=== PATIENT | female | born 1945 | race Caucasian/White ===

== ENCOUNTER 2020-12-11 13:38 | Emergency (ER) | payer MEDICARE, MEDICAID, SELFPAY ==
[2020-12-11 13:39] VITALS: BP 136/71; PULSE 84; RESP 18; TEMP 36.7; O2SAT 96; BMI 18.8
--- NOTE | 2020-12-11 13:44 | CT_ITS ---
PROCEDURE: CT HEAD/BRAIN WO CON CLINICAL INDICATION: fall Head injury with headache/pain, contusion, abrasion or hematoma COMPARISON: No exams were available for comparison TECHNIQUE: Axial images obtained. All CT scans at the facility use one or more dose reduction, viz: automated exposure control, ma/kV adjustment per patient size (including targeted exams where dose is matched to indication, i.e. head), or iterative reconstruction technique. FINDINGS: No midline shift, mass effect, intracranial hemorrhage, hydrocephalus, or extra-axial fluid collection is evident. There is generalized atrophy with hypoattenuation of the periventricular white matter consistent with microangiopathic changes. There has been a prior left occipital craniotomy. Soft tissue swelling is present in the frontal region of the scalp on the right and in the periorbital area IMPRESSION: No acute intracranial finding Right frontal scalp hematoma Dictated by: Joe Tesfaye MD 12/11/2020 14:36 Joe Tesfaye MD in [facility] 12/11/2020 14:36
--- NOTE | 2020-12-11 13:44 | CT_ITS ---
PROCEDURE: CT CERVICAL SPINE WO CON CLINICAL INDICATION: fall Neck injury with pain, contusion/abrasion or hematoma, cervical sprain/strain COMPARISON: No exams were available for comparison TECHNIQUE: Axial images obtained with sagittal and coronal reformats. All CT scans at the facility use one or more dose reduction, viz: automated exposure control, ma/kV adjustment per patient size (including targeted exams where dose is matched to indication, i.e. head), or iterative reconstruction technique. Axial spiral CT scanning performed of the cervical spine beginning at the base of the skull and continuing to the upper T-spine. 3-D multiplanar reconstruction with 3-D manipulation of volumetric data set in image rendering was completed by the radiologist and/or technologist with the supervision of the radiologist on independent workstation. FINDINGS: Normal alignment. No acute fracture or dislocation. C2-C3: Degenerative disc disease. Canal stenosis with left lateral recess and foraminal narrowing. C3-C4: Degenerative disc disease with severe canal stenosis of 7 mm with bilateral lateral recess and foraminal narrowing. C4-C5: Degenerative disc disease. C5-C6: Degenerative disc disease with left-sided lateral recess and foraminal narrowing. C6-C7: Degenerate disc disease with left-sided uncovertebral hypertrophy and left-sided lateral recess and foraminal narrowing. There is scarring in the lung apices. IMPRESSION: No acute fracture. Cervical spondylosis as detailed above with canal stenosis Dictated by: Joe Tesfaye MD 12/11/2020 14:40 Joe Tesfaye MD in [facility] 12/11/2020 14:40
[2020-12-11 13:48] VITALS: BP 136/71; PULSE 85; O2SAT 98
--- NOTE | 2020-12-11 13:49 | CT_ITS ---
PROCEDURE: CT FACIAL BONES WO CON CLINICAL HISTORY: fall Right-sided forehead laceration with pain and swelling COMPARISON: No exams were available for comparison TECHNIQUE: Axial images obtained with sagittal and coronal reformats. All CT scans at the facility use one or more dose reduction, viz: automated exposure control, ma/kV adjustment per patient size (including targeted exams where dose is matched to indication, i.e. head), or iterative reconstruction technique. FINDINGS: There is scalp hematoma in the right frontal region with right-sided periorbital hematoma. No obvious fracture. No sinus air-fluid level. There has been a prior craniotomy in the left occipital region. There are severe osteoarthritic changes of the right TMJ with subchondral cystic changes of the mandibular condyle and flattening of the mandibular condyle and condylar fossa. Severe osteoarthritic changes are present involving the left TMJ as well. 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 No acute fracture. 2. Right frontal and periorbital hematoma. 3. Severe bilateral TMJ arthropathy Dictated by: Joe Tesfaye MD 12/11/2020 14:42 Joe Tesfaye MD in [facility] 12/11/2020 14:42
--- NOTE | 2020-12-11 13:49 | [facility].EDGENADL ---
ED Disposition Clinical Impression: Fall Qualifiers: Encounter type: initial encounter Qualified Code(s): W19.XXXA - Unspecified fall, initial encounter Closed head injury Qualifiers: Encounter type: initial encounter Qualified Code(s): S09.90XA - Unspecified injury of head, initial encounter Forehead laceration Qualifiers: Encounter type: initial encounter Qualified Code(s): S01.81XA - Laceration without foreign body of other part of head, initial encounter Disposition: Home, Self-Care Condition on Discharge: Fair Instructions: DI for Laceration Repair -- Simple, How to Prevent Falls Additional Instructions: You have been evaluated for fall, forehead laceration. Some sutures are absorbable. Others will need to be removed in 7 to 10 days. Please follow-up with your primary care doctor in 1 to 2 days for concussion recheck. Return to the emergency department for any new or worsening symptoms, vomiting, other concerns. Referrals: Terrance Barrera [Primary Care Provider] - Time of Disposition: 16:50 - Critical Care Critical Care Time: No Attestation: On , the high probability of a clinically significant, sudden or life threatening deterioration of the following system(s) required my full and direct attention, intervention and personal management. The time I documented below is in addition to time spent performing reported procedures but includes the following listed in this critical care notation. Medical Decision Making - Medical Records Medical records reviewed: Yes: I reviewed the patient's medical records. - Andrea Inquiry Pt receiving controlled substance: No Vital Signs: 12/11/20 13:39 12/11/20 13:48 12/11/20 15:01 Temperature 98.1 F Temperature Source Oral Pulse Rate [Left Radial] 84 85 85 Respiratory Rate 18 Blood Pressure [Right Arm] 136/71 136/71 171/89 H Blood Pressure Mean [Right Arm] 92 92 116 Blood Pressure Source [Right Arm] Automatic Cuff Automatic Cuff Automatic Cuff Blood Pressure Position [Right Arm] Sitting Sitting Sitting 02 Sat by Pulse Oximetry 96 98 99 Oxygen Delivery Method Room Air Room Air Room Air - Lab Data Lab Results 12/11/20 14:40: WBC 7.9, RBC 4.02 L, Hgb 12.3, Hct 37.3, MCV 93.0, MCH 30.5, MCHC 32.8, RDW 13.8, Plt Count 213, MPV 7.9, Neut % (Auto) 56.8, Lymph % (Auto) 37.3, [place] % (Auto) 5.3, Eos % (Auto) 0.3, Baso % (Auto) 0.3, Neut # (Auto) 4.5, Lymph # (Auto) 2.9, [place] # (Auto) 0.4, Eos # (Auto) 0.0, Baso # (Auto) 0.0 Result diagrams: 12/11/20 14:40 Orders (Tests/Meds): ED MEDICATIONS Discontinued Medications Generic Name Dose Route Start Last Admin Trade Name Freoscar PRN Reason Stop Dose Admin Lidocaine HCl 10 ml 12/11/20 15:19 12/11/20 15:34 Lidocaine 1% 10ml Mdv IJ 12/11/20 15:20 10 ml ONCE ONE Administration - CT Data CT Scan: Head, C-Spine Time Received: 15:[address] Reviewed: Yes: I have reviewed the patient's CT results, I have viewed the radiologist's interpretation Findings Narrative: IMPRESSION 1. No acute fracture. 2. Right frontal and periorbital hematoma. 3. Severe bilateral TMJ arthropathy IMPRESSION: No acute intracranial finding Right frontal scalp hematoma Medical Decision Narrative: In summary this is a 75-year-old female presenting to the emergency department with head injury after a fall. She has a large laceration on the right forehead. Concern for serious intracranial injury, C-spine fracture, facial bone fracture. Will obtain CBC, CMP, chest x-ray, EKG, CT scan of the head, facial bones, C-spine. Noncontrast head CT shows hematoma but no intracranial injury. No skull fracture. CT C-spine shows no cervical spine injury. No facial bone fractures. Laceration anesthetized, irrigated, repaired. Procedure well-tolerated. Patient counseled on concussion precautions. Recommended to follow-up with her PCP. Stable for discharge. General Adult HPI - General Chief complaint: Fall St
[2020-12-11 14:50] LABS: Basophils % 0.3 % (0.1-2.0); Eosinophils % 0.3 % (0.1-12.0); Hematocrit 37.3 % (37.0-47.0); Hemoglobin 12.3 g/dL (12.2-16.2); Lymphocytes # 2.9 K/mm3 (0.7-4.5); Lymphocytes % 37.3 % (10-50); Mean Corpuscular HGB Conc 32.8 g/dL (31.8-35.4); Mean Corpuscular Hemoglobin 30.5 pg (27.0-31.2); Mean Platelet Volume 7.9 fl (7.4-10.4); Monocytes # 0.4 K/mm3 (0.1-1.0); Monocytes % 5.3 % (1.7-9.3); Neutrophils # 4.5 K/mm3 (1.8-7.8); Neutrophils % 56.8 % (37.0-80.0); Platelet Count 213 K/mm3 (142-424); Red Blood Count 4.02 M/mm3 (4.20-5.40); Red Cell Distribution Width 13.8 % (11.5-17.5); White Blood Count 7.9 K/mm3 (4.8-10.8)
[2020-12-11 15:01] VITALS: BP 171/89; PULSE 85; O2SAT 99
--- NOTE | 2020-12-11 15:41 | PC.NURSE ---
Provider at bedside for laceration repair.
[2020-12-11 16:30] VITALS: BP 166/79; PULSE 79; RESP 20; O2SAT 97
[2020-12-11 17:00] VITALS: BP 159/76; PULSE 80; RESP 17; O2SAT 96
[2020-12-11 17:07] VITALS: BP 156/83; PULSE 79; RESP 18; TEMP 36.6; O2SAT 97
== END 2020-12-11 17:08 | disposition home or self-care (01) ==
PROVIDERS: Emergency Provider Emergency Medicine; PCP Family Medicine
DX: S01.111A Laceration without foreign body of right eyelid and periocular area, initial encounter (principal); W18.30XA Fall on same level, unspecified, initial encounter; Y92.129 Unspecified place in nursing home as the place of occurrence of the external cause
CPT/HCPCS: 12014; 70450; 70486; 72125; 85025; 90715; 96372; 99284